=== PATIENT | male | born 1970 ===

== ENCOUNTER 2021-03-03 07:55 | Outpatient (CLI) | payer OTHER ==
[~2021-03-03 07:55] MED LIST: ASA81 MG; BENADRYL25 MG PO; HYDROCHLOROTH12.5 MG; LISINOPRIL20 MG
== END 2021-03-03 07:56 | disposition home or self-care (01) ==
LOC: NUCLEAR 07:55
PROVIDERS: ATTEND Internal Medicine Cardiovascular Disease
DX: R07.89 Other chest pain (principal)

== ENCOUNTER 2021-04-22 08:00 | Outpatient (CLI) | payer OTHER | END 2021-04-22 08:30 | disposition home or self-care (01) | LOC: PPH VACUNA 08:00 | PROVIDERS: ATTEND Emergency Medicine Pediatric Emergency Medicine | DX: Z23 Encounter for immunization (principal) ==